=== PATIENT | male | born 1945 | race Caucasian/White ===

== ENCOUNTER → 2020-10-14 11:22 | Outpatient (CLI) | payer MEDICARE, SELFPAY ==
[2020-10-14 13:08] LABS: COVID19 -Nasal RAPID Negative (Negative)
== END ==
PROVIDERS: PCP Internal Medicine; Visit Provider Physician Assistant
DX: Z20.822 Contact with and (suspected) exposure to COVID-19 (principal)
CPT/HCPCS: 87635; C9803

== ENCOUNTER → 2020-10-16 13:27 | Outpatient (CLI) | payer MEDICARE, SELFPAY ==
--- NOTE | 2020-10-16 13:31 | DI.ECHO.S_ITS ---
[facility]---------+ [facility] +---------+ : : [address] : [address] : : : : [id number] : : : : Phone: [phone]---------+ Echocardiogram Report + + :Name: NAVYA COTE Study Date: 10/16/2020 Height: 69 in : :[facility] ReadingLocation: Weight: 220 lb : : Gender: Male BSA: 2.2 m2 : :: 1945 Age: 75 yrs BP: 151/63 mmHg: :Reason For Study: Murmur : :Ordering Physician: Mary : :Joslyn Santana Performed By: Alex Pugh : :Referring: MARY SANTANA : + + Interpretation Summary 1) Normal left ventricular thickness, size, wall motion, and systolic function (EF 60-65%). 2) Normal right ventricular size and function. 3) Diastolic parameters suggest a pseudonormalization pattern, consistent with probable elevated filling pressures. 4) Mild to moderate aortic stenosis present (valve area 1.7cm2, mean gradient 30mmHg). Stroke volume 172cc. 5) Hypertension present during the study (BP 151/63mmHg). 6) No prior Echo available for comparison. Procedure: A two-dimensional transthoracic echocardiogram with color flow and Doppler was performed. The study quality was technically adequate. There is no prior echocardiogram noted for this patient. The patient was in sinus bradycardia with heart rates between 41-49 bpm during the exam. Left Ventricle: The left ventricle is normal in size and wall thickness. Left ventricular systolic function is normal. The ejection fraction is estimated to be 60-65%. There are no focal wall motion abnormalities. Diastolic parameters suggest a pseudonormalization pattern, consistent with probable elevated filling pressures. Right Ventricle: The right ventricle is normal in size and function. Atria: The left atrium is moderately dilated. The right atrium is normal in size. There is no Doppler evidence for an interatrial shunt. Mitral Valve: There is moderate mitral annular calcification. There is trace mitral regurgitation. Aortic Valve: The aortic valve is moderately calcified. There is mild to moderate aortic stenosis. The aortic valve mean gradient is 30 mmHg. There is mild aortic regurgitation. Tricuspid Valve: The tricuspid valve is normal in structure and function. There is mild tricuspid regurgitation. The right ventricular systolic pressure is estimated to be at least 36 mmHg based on an estimated right atrial pressure of 8 mm Hg. Pulmonic Valve: The pulmonic valve is not well seen, but is grossly normal. There is mild pulmonic regurgitation. Great Vessels: The aortic root is normal size. The dimensions of the ascending aorta are normal. The IVC is dilated (diameter is greater than 2.1 cm) yet it collapses greater than 50% with a sniff. This suggests a right atrial pressure of 8 mm Hg. Pericardium/ Pleura There is no pericardial effusion. There is no pleural effusion. MMode/2D Measurements & Calculations LVIDd: 5.6 cm LVOT diam: 2.4 cm LVIDs: 3.4 cm Ao root diam: 3.3 cm FS: 38.6 % asc Aorta Diam: 3.5 cm IVSd: 1.0 cm LVPWd: 0.92 cm LV cazares. diameter/BSA (cm/m^2): 2.6 LV sys. diameter/BSA (cm/m^2): 1.6 LA A2 area: 20.4 cm2 RA area: 17.5 cm2 LA A4 area: 23.9 cm2 IVC diam: 2.5 cm LA length (vol): 5.4 cm LA vol: 76.3 ml LA vol index: 35.5 ml/m2 TAPSE: 3.2 cm Doppler Measurements & Calculations Ao V2 max: 365.8 cm/sec LVOT Max Matias: 141.6 cm/sec Ao V2 mean: 259.2 cm/sec LV V1 max P.0 mmHg Ao max P.5 mmHg LV V1 VTI: 38.8 cm Ao mean P.3 mmHg EVERT(I,D): 1.8 cm2 Ao V2 VTI: 94.2 cm EVERT(V,D): 1.7 cm2 sev ratio: 0.41 EVERT indexed to BSA (cm^2/m^2): 0.85 MV E max matias: 140.5 cm/sec TR max matias: 262.7 cm/sec MV A max matias: 113.1 cm/sec TR max P.6 mmHg MV E/A: 1.2 PA V2 max: 115.4 cm/sec Med Peak E' Matias: 7.1 cm/sec PA V2 mean: 86.1 cm/sec E/E' med: 19.9 PA mean P.3 mmHg Lat Peak E' Matias: 7.3 cm/sec PA pr(Accel): 30.7 mmHg E/E' lat: 19.3 E/e' average: 19.6 MV dec time: 0.28 sec SV(LVOT): 171.9 ml Reading Physician:04:48 PM
--- NOTE | 2020-10-16 15:57 | P.PCN_ITS ---
Cardiac Stress Test Report Referral & Results Date Patient Seen: 10/16/20 Time Patient Seen: 15:58 Requesting provider: Sowmya Santana Indication: cardiac murmur, bradycardia Rest ECG: sinus bradycardia with RBBB Procedure Note: Standard Monty protocol, 4:07; 5.1 METS Reduced exercise capacity, GRACE +21%; submaximal stress test, patient did not a chieve target heart rate Normal hemodynamic response to exercise No chest pain or anginal symptoms No significant ST changes at peak exercise No ectopy Impression: Submaximal exercise stress test Please note: Actual ECG tracings can be found in the PACS system.
--- NOTE | 2020-10-16 19:27 | DI.NM.S_ITS ---
DATE OF SERVICE: 10/16/2020 PROCEDURE PERFORMED: Standard exercise treadmill stress test without imaging. ORDERING PROVIDER: Dr. Lenard Santana. INDICATIONS: The patient is a 75-year-old male with documented asymptomatic 2nd degree AV block. This study is performed to assess chronotropic competency. FINDINGS: 1. The patient was able to exercise for 4 minutes 7 seconds on a standard Monty protocol suggesting moderately reduced exercise capacity with an GRACE of +21%, achieving 5.1 METs, but was limited by thigh pain. 2. He had a slightly blunted chronotropic response with a resting heart rate of 65 BPM, increasing to a maximum of 115 BPM (80% of his predicted maximum). He had a normal blood pressure response. 3. He had no chest discomfort or other anginal symptom. 4. His resting ECG shows sinus rhythm with a borderline first degree AV block and a RBBB with associated ST-segment abnormalities. With stress, there were no significant ST-segment shifts to suggest ischemia. There were no arrhythmias, ectopy, or evidence of progressive AV block. IMPRESSION: 1. Normal exercise treadmill study with no ECG evidence for ischemia. 2. Moderately impaired exercise capacity but limited by thigh pain. With this, he had a slightly blunted chronotropic response, achieving a maximum heart rate of 115 bpm (80% of his predicted maximum), but had no symptoms and no evidence for any advanced atrioventricular block. COTE NAVYA - KAYLAN/kailash/lexis doc#: [id number]/job#: [id number] dd: 10/16/2020 17:02:00 dt: 10/16/2020 18:17:00 DICTATING MD/COPIES TO: Mauricio Guzman MD; Sowmya Santana MD COPIES MNE: PATSY;
== END ==
PROVIDERS: PCP Internal Medicine; Referring Provider Internal Medicine Cardiovascular Disease; Visit Provider Internal Medicine Cardiovascular Disease
DX: I08.2 Rheumatic disorders of both aortic and tricuspid valves (principal); I44.1 Atrioventricular block, second degree; R00.1 Bradycardia, unspecified; R01.1 Cardiac murmur, unspecified; E11.9 Type 2 diabetes mellitus without complications; Z79.4 Long term (current) use of insulin
CPT/HCPCS: 93017; 93306

== ENCOUNTER → 2020-10-23 16:20 | Outpatient (CLI) | payer MEDICARE, SELFPAY ==
[2020-10-23 18:18] LABS: BUN Creatinine Ratio 25.2 (6-22); Blood Urea Nitrogen 33 mg/dL (9-20); Calcium 9.2 mg/dL (8.4-10.2); Carbon Dioxide 27 mmol/L (22-32); Chloride 106 mmol/L (98-107); Estimated Glomerular Filt Rate 53.1 mL/min (>60); Glucose 89 mg/dL (80-110); HEMOLYSIS < 15 (0-50); Potassium 4.7 mmol/L (3.4-5.1); Sodium 140 mmol/L (137-145)
== END ==
PROVIDERS: PCP Internal Medicine; Referring Provider Internal Medicine Cardiovascular Disease; Visit Provider Internal Medicine Cardiovascular Disease
DX: I10 Essential (primary) hypertension (principal)
CPT/HCPCS: 36415; 80048

== ENCOUNTER → 2023-02-20 13:22 | Outpatient (CLI) | payer MEDICARE, SELFPAY ==
--- NOTE | 2023-02-20 | DI.ECHO.S_ITS ---
[facility]---------+ [facility] +---------+ : : [address] : [address] : : [address] : : : : [id number] : : : : Phone: [phone]---------+ Echocardiogram Report + + :Name: NAVYA COTE Study Date: 02/20/2023 Height: 70 in : :[facility] ReadingLocation: Weight: 240 lb : : Gender: Male BSA: 2.3 m2 : :: 1945 Age: 77 yrs BP: 164/63 mmHg: :Reason For Study: Nonrheumatic Aortic Valve Stenosis : :Ordering Physician: DIANA, : :MARY Performed By: Karen Brown : :Referring: MARY SANTANA : + + Interpretation Summary 1) Mildly to moderately increased left ventricular hypertrophy (concentric) with normal size, normal wall motion, and normal systolic function (EF 65- 70%). 2) The right ventricle is mildly dilated. The right ventricular systolic function is normal. 3) There is severe aortic stenosis (valve area 0.9cm2, mean gradient 48mmHg, severity ratio 0.25). 4) Compared to the Echo done 10/16/2020, aortic stenosis has progressed from mild-moderate aortic stenosis to severe aortic stenosis. Procedure: A two-dimensional transthoracic echocardiogram with color flow and Doppler was performed. The study quality was technically difficult. Comparison is made with the echocardiogram of 10/16/2020. A contrast injection of Definity was performed to improve assessment of LV function. The patient was in a bradycardic rhythm during the exam. Left Ventricle: The left ventricle is normal in size. There is mild-moderate concentric left ventricular hypertrophy. The ejection fraction is estimated to be 65-70%. Left ventricular systolic function appears normal without focal wall motion abnormalities. Diastolic parameters suggest a pseudonormalization pattern, consistent with probable elevated filling pressures. Right Ventricle: The right ventricle is mildly dilated. The right ventricular systolic function is normal. Atria: The left atrium is moderately dilated. Right atrial size is normal. There is no Doppler evidence for an interatrial shunt. Mitral Valve: The mitral valve leaflets are mildly calcified. The mitral valve mean gradient is 3 mmHg. There is trace mitral regurgitation. Aortic Valve: The aortic valve is heavily calcified. There is severe aortic stenosis. The peak aortic velocity is 4.61 m/sec. The aortic valve mean gradient is 49 mmHg. There is mild aortic regurgitation. Tricuspid Valve: The tricuspid valve is normal. There is no tricuspid stenosis. There is trace tricuspid regurgitation. Pulmonic Valve: The pulmonic valve leaflets are thin and pliable; valve motion is normal. There is no pulmonic valvular stenosis. There is trace pulmonic regurgitation. Great Vessels: The aortic root is normal size. The ascending aorta is normal in size. The pulmonary artery is normal size. The inferior vena cava was not well visualized. Pericardium/ Pleura There is no pericardial effusion. There is no pleural effusion. MMode/2D Measurements & Calculations LVIDd: 5.0 cm LVOT diam: 2.1 cm LVIDs: 2.8 cm Ao root diam: 3.1 cm FS: 44.0 % asc Aorta Diam: 3.4 cm EPSS: 1.1 cm IVSd: 1.4 cm LVPWd: 1.4 cm LV cazares. diameter/BSA (cm/m^2): 2.2 LV sys. diameter/BSA (cm/m^2): 1.2 LA A2 area: 32.8 cm2 RA long axis: 5.6 cm LA A4 area: 26.4 cm2 RA area: 18.7 cm2 LA length (vol): 6.6 cm RA vol: 52.9 ml LA vol: 112.2 ml RA : 23.4 ml/m2 LA vol index: 49.8 ml/m2 RVD1 (basal): 4.8 cm LVLs ap4: 6.7 cm LVLd ap2: 8.1 cm TAPSE_phl: 3.0 cm LVLs ap2: 6.4 cm Doppler Measurements & Calculations Ao V2 max: 455.6 cm/sec LVOT Max Matias: 126.3 cm/sec Ao V2 mean: 324.8 cm/sec LV V1 max P.4 mmHg Ao max P.0 mmHg LV V1 VTI: 34.0 cm Ao mean P.0 mmHg EVERT(I,D): 0.88 cm2 Ao V2 VTI: 133.6 cm EVERT(V,D): 0.96 cm2 sev ratio: 0.25 EVERT indexed to BSA (cm^2/m^2): 0.39 MV E max matias: 112.0 cm/sec TR max matias: 185.0 cm/sec MV A max matias: 118.0 cm/sec TR max P.9 mmHg MV E/A: 0.95 PA V2 max: 125.0 cm/sec Med Peak E' Matias: 6.5 cm/sec PA V2 mean: 82.5 cm/sec E/E' med: 17.2 PA mean P.0 mmHg Lat Peak E' Matias: 7.5 cm/sec PA pr(Accel): 4.3 mmHg E/E' lat: 15.0 E/e' average: 16.1 MV dec time: 0.33 sec MVA(VTI): 1.7 cm2 MV V2 mean: 78.0 cm/sec SV(LVOT): 117.9 ml MV mean P.0 mmHg MV V2 VTI: 69.6 cm AV VR_phl: 0.28 EVERT(VTI)/BSA_phl: 0.39 Reading Physician:12:52 PM
== END ==
PROVIDERS: PCP Internal Medicine; Referring Provider Internal Medicine Cardiovascular Disease; Visit Provider Internal Medicine Cardiovascular Disease
DX: I35.2 Nonrheumatic aortic (valve) stenosis with insufficiency (principal)
CPT/HCPCS: 93306; Q9957